=== PATIENT | male | born 1985 | race Caucasian/White ===

== ENCOUNTER 2017-12-04 21:33 | Emergency (ER) | payer OTHER, BC ==
[2017-12-04] MEDS ORDERED: Ketorolac 60 MG/2 ML SDV IM ONE (21:40)
--- NOTE | 2017-12-04 21:40 | EDM.PDOC ---
<Annamaria Bloom - Last Filed: 12/04/17 22:02> ED HPI GENERAL MEDICAL PROBLEM - General Chief Complaint: Upper Extremity Injury/Pain Stated Complaint: SMASHED FINGER RT HAND Time Seen by Provider: 12/04/17 22:02 Source of Information: Reports: Patient History Limitations: Reports: No Limitations - History of Present Illness INITIAL COMMENTS - FREE TEXT/NARRATIVE: HISTORY AND PHYSICAL: History of present illness: Maxwell is a 32-year-old male here for hand injury. 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 Last tetanus was 6 years ago. Review of systems: As per history of present illness and below otherwise all systems reviewed and negative. Past medical history: As per history of present illness and as reviewed below otherwise noncontributory. Surgical history: As per history of present illness and as reviewed below otherwise noncontributory. Social history: No reported history of drug or alcohol abuse. Family history: As per history of present illness and as reviewed below otherwise noncontributory. Physical exam: General: Patient sitting comfortably in no acute distress HEENT: Atraumatic, normocephalic, pupils reactive, negative for conjunctival pallor or scleral icterus,. Lungs: Clear to auscultation, breath sounds equal bilaterally, chest nontender. Heart: S1S2, regular, negative for clicks, rubs, or JVD. Extremities: distal right index finger is macerated with skin hanging from the DIP distally. There is bone appreciated at the distal aspect of the injury. He has full ROM of PIP. negative for cords or calf pain. Neuro: Awake, alert, oriented. Cranial nerves II through XII unremarkable. Cerebellum unremarkable. Motor and sensory unremarkable throughout. Exam nonfocal. Notes: Diagnostics: x-ray right index finger Therapeutics: Digital block Toradol 60mg IM 2g Ancef Impression: Open fracture, crush injury Plan: [] Definitive disposition and diagnosis as appropriate pending reevaluation and review of above. Right 2-Index finger Pain Score (Numeric/FACES): 5 - Related Data Allergies Allergy/AdvReac Type Severity Reaction Status Date / Time No Known Allergies Allergy Verified 12/04/17 22:56 Home Meds: Home Meds . [No Known Home Meds] 12/04/17 [History] Past Medical History - Past Health History Medical/Surgical History: Denies Medical/Surgical History Social & Family History - Tobacco Use Smoking Status *Q: Current Every Day Smoker Years of Tobacco use: 12 Packs/Tins Daily: 0.5 Review of Systems - Review of Systems Review Of Systems: ROS reveals no pertinent complaints other than HPI. ED EXAM, GENERAL - Physical Exam Exam: See Below (see dictation) Course - Vital Signs Last Recorded V/S: Last Vital Signs Temp 36.8 C 12/04/17 21:40 Pulse 114 H 12/04/17 21:40 Resp 18 12/04/17 21:40 BP 145/79 H 12/04/17 21:40 Pulse Ox 99 12/04/17 21:40 - Orders/Labs/Meds Orders: Active Orders 24 hr Category Date Time Status Vaccines to be Administered [RC] PER UNIT ROUTINE Care 12/04/17 21:43 Active Fingers Second Digit Rt F6 [CR] Stat Exams 12/04/17 21:44 Taken Meds: Medications Discontinued Medications Generic Name Dose Route Start Last Admin Trade Name Shwetha PRN Reason Stop Dose Admin Hydrocodone Bitart/Acetaminophen 1.5 tab 12/04/17 22:56 12/04/17 23:06 Perryman 325-5 Mg PO 12/04/17 22:57 1.5 tab ONETIME ONE Administration Cefazolin Sodium 2,000 mg 12/04/17 22:02 Ancef IM 12/04/17 22:03 ONETIME ONE Diphtheria/Tetanus/Acell Pertussis 0.5 ml 12/04/17 21:43 12/04/17 22:17 Adacel IM 12/04/17 21:44 0.5 ml .ONCE ONE Administration Lidocaine HCl Confirm 12/04/17 21:48 Xylocaine-Mpf 1% Administered 12/04/17 21:49 Dose 10 mls @ as directed .ROUTE .STK-MED ONE Sterile Water Confirm 12/04/17 22:37 Sterile Water For Injection Administered 12/04/17 22:38 Dose 20 mls @ as directed .ROUTE .STK-MED ONE Ketorolac Tromethamine 60 mg 12/04/17 21:40 12/04/17 22:19 Toradol IM 12/04/17 21:41 60 mg ONETIME ONE Administration Lidocaine HCl 10 ml 12/04/17 21:43 Xylocaine 1% INJECT 12/04/17 21:44 ONETIME ONE Departure - Departure Disposition: Home, Self-Care 01 Clinical Impression: Open fracture of distal phalanx, Crushing injury of finger of right hand - Discharge Information Referrals: PCP,None [Primary Care Provider] - Forms: ED Department Discharge Additional Instructions: The following information is given to patients seen in the emergency department who are being discharged to home. This information is to outline your options for follow-up care. We provide all patients seen in our emergency department with a follow-up referral. The need for follow-up, as well as the timing and circumstances, are variable depending upon the specifics of your emergency department visit. If you don't have a primary care physician on staff, we will provide you with a referral. We always advise you to contact your personal physician following an emergency department visit to inform them of the circumstance of the visit and for follow-up with them and/or the need for any referrals to a consulting specialist. The emergency department will also refer you to a specialist when appropriate. This referral assures that you have the opportunity for followup care with a specialist. All of these measure are taken in an effort to provide you with optimal care, which includes your followup. Under all circumstances we always encourage you to contact your private physician who remains a resource for coordinating your care. When calling for followup care, please make the office aware that this follow-up is from your recent emergency room visit. If for any reason you are refused follow-up, please contact the [facility] emergency department at and ask to speak to the emergency department charge nurse. [facility] Specialty clinic-Plastic Surgery and Hand Surgery Professional [address] [id number] Please fill the prescription for Keflex and start that in the morning. Please keep dressing and splint placed in the ED on until you're seen by the hand specialist. He will be contacted at 6:30 AM with the plan for further care tomorrow. The ER as needed and as discussed. Ice and elevate the area. <Ruba Scanlon - Last Filed: 12/04/17 23:28> ED HPI GENERAL MEDICAL PROBLEM - History of Present Illness INITIAL COMMENTS - FREE TEXT/NARRATIVE: This is Dr. Scanlon dictating an addendum note as I am assuming care of this case at 10 PM. X-ray results have been reviewed and the patient has been personally examined by me. There is extensive crush injury to the soft tissue of the distal tuft and visible drooping in the flexor direction of the distal phalanx secondary to extensor tendon rupture. A small and of bone is able to be seen at the DIP on the dorsal aspect and the nail is completely dislodged from the soft tissue and was removed. The patient received a digital block earlier which I will repeat and also give the patient Perryman 7.5/325 for pain. He has received 2 g of Ancef here and will go home on Keflex. I discussed this case with Dr. Villafana at [facility] in [place] at 20 2:55 PM and he states that the patient does not need to be emergently sent to see him and can be seen by her specialist tomorrow. I discussed options with the patient and he is comfortable with this care plan. Will discuss this case at 6 AM in the morning with Dr. Dc and sent pictures which the patient has authorized me to take so that she can either plan to meet the patient in the ED tomorrow morning or in her clinic. Procedure note: The wound had previously been cleansed by nursing and 1% lidocaine with epinephrine was infused in a local fashion. I attempted to try to reapproximate some of the soft tissue to give the bone some coverage and reapproximate the tissue planes.A total number of sutures # 6 of 4-[address] interrupted [address] were placed. Unfortunately the bone is still palpable as there is no soft tissue to reapproximate in this region on the dorsal aspect of the finger The patient tolerated the procedure well and there were no complications. A nonstick dressing and tube gauze will be applied as well as a cage splint. The patient is aware of the plan to contact our hand specialist at 6 AM for follow-up with her. I will call him after I discussed this case with her. Impression Complicated open fracture of the distal phalanx of the right index finger with severe soft tissue crush injury Departure - Departure Time of Disposition: 23:26 Condition: Good
[2017-12-04] MEDS ORDERED: Lidocaine 1% 10 ML MDV INJECT ONE (21:43)
[2017-12-04] MEDS ORDERED: Diphtheria,Pertussis(Acell),Tetanus Vaccine 0.5 ML Syringe IM ONE (21:43)
[2017-12-04] MEDS ORDERED: ceFAZolin 1,000 MG VIAL IM ONE (22:02)
[2017-12-04] MEDS ORDERED: Water For Injection, Sterile 20 ML ONE (22:37)
[2017-12-04] MEDS ORDERED: Acetaminophen/HYDROcodone 325-5 MG Tab PO ONE (22:56)
[2017-12-04] MEDS ORDERED: Bacitracin Oint 1 GM U/D Packet TOP ONE (23:27)
--- NOTE | 2017-12-05 18:39 | CR ---
EXAM DATE: 12/04/17 PATIENT'S AGE: 32 Patient: SUNDAY VERGARA Facility: [place], [place] Site . Site : 1985 Study: XRay Extremity Right 2nd digit [id number]/15/2018 10:20:33 PM Ordering Physician: Doctor Green Final Report: Indication: Second digit caught in pump at work. Technique: Right hand three views. Comparison: None Findings: There is an avulsion type fracture involving the dorsal base of the distal 2nd phalanx and subtle fracture involving the tip of the tuft of the distal 2nd phalanx as well. Flexion deformity of the distal 2nd phalanx. Extensive irregularity of the soft tissues of the tuft of the 2nd digit, concerning for open fracture. Remainder of the right hand shows no additional evidence of fracture. Impression: Fractures of the distal 2nd phalanx with extensive soft tissue injury, concerning for open fracture. Associated flexion deformity of the distal 2nd phalanx. Dictated by Pepito Black MD @ 12/04/2017 10:28:19 PM Dictated by: Pepito Black MD @ 12/04/2017 22:28:35 (Electronic Signature) Report Signed by Proxy. TREY
== END 2017-12-05 00:05 | disposition home or self-care (01) ==
LOC: MW.ED 21:33
DX: S67.21XA Crushing injury of right hand, initial encounter (principal); S62.630B Displaced fracture of distal phalanx of right index finger, initial encounter for open fracture; S61.210A Laceration without foreign body of right index finger without damage to nail, initial encounter; F17.210 Nicotine dependence, cigarettes, uncomplicated; Z23 Encounter for immunization; W23.0XXA Caught, crushed, jammed, or pinched between moving objects, initial encounter; Y99.0 Civilian activity done for income or pay
CPT/HCPCS: 12001; 73140; 90471; 90715; 96372; 99283; A9270; J0690; J1885